=== PATIENT | male | born 1990 | race Two or more races ===

== ENCOUNTER 2022-12-12 08:45 | Emergency (ER) | payer MEDICAID, OTHER ==
[~2022-12-12] VITALS: Ht 172.7 cm; Wt 92.6 kg
[2022-12-12 09:35] LABS: Basophils # (auto) 0.1 10 ^3/uL (0-0.2); Basophils % (auto) 0.5 % (0.0-2.0); Eosinophils # (auto) 0 10 ^3/uL (0-0.8); Eosinophils % (auto) 0.1 % (0.0-7.0); Hematocrit 53.4 % (41.0-53.0); Hemoglobin 18.7 g/dL (13.5-17.5); Lymphocytes # (auto) 2.4 10 ^3/uL (0.4-5.4); Lymphocytes % (auto) 21.3 % (10.0-50.0); Mean Corpuscular Hemoglobin 30.8 pg (28.0-32.0); Mean Corpuscular Volume 88.2 fL (80.0-100.0); Monocytes # (auto) 1.3 10 ^3/uL (0-1.3); Monocytes % (auto) 11.3 % (0.0-12.0); Neutrophils # (auto) 7.6 10 ^3/uL (1.6-8.6); Neutrophils % (auto) 66.8 % (37.0-80.0); Nucleated Red Blood Cells % 0.1 %; Red Blood Cells 6.05 10^6/uL (4.5-5.90); White Blood Cell 11.4 10^3/uL (4.4-10.8)
[2022-12-12 09:45] LABS: INR 1.1 (0.9-1.15); Prothrombin Time 11.5 sec (9.3-11.8)
[2022-12-12 09:49] LABS: Alanine Aminotransferase 31 U/L (7-40); Albumin 5.1 g/dL (3.2-4.8); Alkaline Phosphatase 86 U/L (46-116); Anion Gap 15 (5-15); Aspartate Aminotransferase 23 U/L (13-40); Calcium 9.9 mg/dL (8.5-10.1); Carbon Dioxide 25 mmol/L (20-30); Chloride 92 mmol/L (98-107); Glucose 143 mg/dL (74-106); Potassium 3.4 mmol/L (3.5-5.1); Sodium 132 mmol/L (136-145); Total Protein 8.6 g/dL (5.7-8.2)
[2022-12-12 09:58] LABS: Blood Urea Nitrogen < 5 mg/dL (9-23)
[2022-12-12] MEDS ORDERED: SODIUM CHLORIDE 0.9% 1,000 ML IV ONE (15:45)
[2022-12-12] MEDS ORDERED: ACETAMINOPHEN 500 MG TAB PO ONE (16:00)
[2022-12-12 17:08] LABS: Urine Bacteria NONE SEEN /hpf (None Seen); Urine Blood Negative /uL (Negative); Urine Clarity Clear (Clear); Urine Color Yellow (Yellow); Urine Hyaline Cast FEW /lpf (0 - 2); Urine Mucus FEW (None Seen); Urine Protein, UAD 2+ (Negative); Urine Specific Gravity 1.024 (1.001-1.035); Urine WBC <1 /hpf (0 - 3); Urine pH 8.5 (5.0-8.0)
[2022-12-12 17:09] LABS: Amphetamine Screen, Urine Neg (NEGATIVE); Barbiturate Scree,Urine Neg (NEGATIVE); Benzodiazephine Screen, Urine Neg (NEGATIVE); Cannabinoid Screen, Urine Neg (NEGATIVE); Cocaine Screen, Urine Neg (NEGATIVE); Opiate Scree,Urine Neg (NEGATIVE); Phencyclidine Screen, Urine Neg (NEGATIVE)
[2022-12-12 17:11] LABS: Rapid Influenza A Negative (Negative); Rapid Influenza B Negative (Negative)
[2022-12-12 17:12] LABS: COVID19 ANTIGEN SOFIA FIA NEGATIVE (NEGATIVE)
[2022-12-12 18:20] VITALS: BP 159/90; PULSE 76; RESP 17; TEMP 98; O2SAT 99
== END 2022-12-12 18:22 | disposition home or self-care (01) ==
LOC: ER 08:45
DX: R53.83 Other fatigue (principal); R07.89 Other chest pain; Z20.822 Contact with and (suspected) exposure to COVID-19
CPT/HCPCS: 36415; 71045; 80053; 80307; 81001; 84484; 85025; 85610; 85730; 87426; 87804; 93005; 96360; 96361; 99285; J7030

== ENCOUNTER 2023-07-30 11:42 | Inpatient (IN) | payer MEDICAID ==
[~2023-07-30] VITALS: Ht 167.6 cm; Wt 77.2 kg
[2023-07-30] MEDS: ONDANSETRON HCL 4 MG/2 ML VIAL IV ONE (12:13)
[2023-07-30] MEDS: KETOROLAC TROMETH 30 MG/ML 1ML VIAL IV ONE (12:14)
[2023-07-30] MEDS: SODIUM CHLORIDE 0.9% 1,000 ML IV ONE (12:14)
[2023-07-30 12:54] LABS: Eosinophils # (auto) 0 10 ^3/uL (0-0.8); Hemoglobin 18.6 g/dL (13.5-17.5); Neutrophils # (auto) 20.5 10 ^3/uL (1.6-8.6)
[2023-07-30 12:56] LABS: Basophils # (auto) 0.1 10 ^3/uL (0-0.2); Basophils % (auto) 0.2 % (0.0-2.0); Hematocrit 54.5 % (41.0-53.0); Lymphocytes % (auto) 4.2 % (10.0-50.0); Mean Corpuscular Hemoglobin 30.9 pg (28.0-32.0); Mean Corpuscular Volume 90.7 fL (80.0-100.0); Monocytes # (auto) 1.4 10 ^3/uL (0-1.3); Neutrophils % (auto) 89.6 % (37.0-80.0); Nucleated Red Blood Cells % 0.1 %; Red Blood Cells 6.02 10^6/uL (4.5-5.90); White Blood Cell 22.8 10^3/uL (4.4-10.8)
[2023-07-30 13:08] LABS: INR 1.15 (0.9-1.15); Partial Thromboplastin Time 26.8 SEC (24.5-34.5); Prothrombin Time 12.1 sec (9.3-11.8)
[2023-07-30 13:16] LABS: Alanine Aminotransferase 46 U/L (7-40); Alkaline Phosphatase 78 U/L (46-116); Anion Gap 16 (5-15); Aspartate Aminotransferase 32 U/L (13-40); Calcium 10.2 mg/dL (8.5-10.1); Carbon Dioxide 25 mmol/L (20-30); Chloride 96 mmol/L (98-107); Glucose 128 mg/dL (74-106); Magnesium 1.7 mg/dL (1.6-2.6); Potassium 3.7 mmol/L (3.5-5.1); Sodium 137 mmol/L (136-145)
[2023-07-30 13:17] LABS: Albumin 5.1 g/dL (3.2-4.8); Bilirubin, Total 0.6 mg/dL (0.2-1.0); Total Protein 8.1 g/dL (5.7-8.2)
[2023-07-30 13:18] VITALS: PULSE 130; RESP 30; O2SAT 97
[2023-07-30] MEDS: IOHEXOL 300 MG/ML 100ML BOTTLE IJ ONE (13:20)
[2023-07-30 13:25] LABS: BUN/Creatinine Ratio 5.8 (10.0-20.0); Blood Urea Nitrogen < 5 mg/dL (9-23)
[2023-07-30] MEDS: PANTOPRAZOLE 40 MG TAB PO ONE (14:30)
[2023-07-30] MEDS: PANTOPRAZOLE 40mg/50ML NS AE 50 ML IV ONE (14:30)
[2023-07-30] MEDS: DexAMETHasone SOD PHOS 10MG/1ML VIAL INJ IV ONE (14:49)
[2023-07-30] MEDS: diphenhdrAMINE HCL 50 MG/1 ML VL IV ONE (15:07)
[2023-07-30] MEDS: PANTOPRAZOLE 40 MG/10 ML VIAL INJ IV ONE (15:26)
[2023-07-30 15:56] LABS: Rapid Strep A Screen-Throat Negative
[2023-07-30] MEDS ORDERED: ACETAMINOPHEN 325 MG TAB PO PRN (16:15)
[2023-07-30] MEDS ORDERED: NITROGLYCERIN 0.4 MG SL TAB SL PRN (16:15)
[2023-07-30] MEDS ORDERED: SODIUM CHLORIDE 0.9% 1,000 ML IV SCH (16:15)
[2023-07-30] MEDS: VANCOMYCIN 1GM/200ML 200 ML IV ONE (16:30)
[2023-07-30] MEDS ORDERED: ALBUTEROL SULF 2.5 MG/0.5ML(0.5%) NEB SOLN NEB PRN (16:30)
[2023-07-30] MEDS ORDERED: VANCOMYCIN PER PHARMACY 0 MG IV SCH (16:30)
[2023-07-30] MEDS: cefTRIAXone 1GM/50ML D5W 50 ML IV ONE (16:37)
[2023-07-30 16:46] LABS: Triglycerides 148 mg/dL (< 150)
[2023-07-30] MEDS: ONDANSETRON HCL 4 MG/2 ML VIAL IV PRN (16:46)
[2023-07-30 16:47] LABS: LDL Cholesterol 77 mg/dL (< 100)
[2023-07-30] MEDS: SODIUM CHLORIDE 0.9% 2,000 ML IV ONE (16:47)
[2023-07-30 16:48] LABS: Cholesterol 144 mg/dL (< 200); HDL Cholesterol 50 mg/dL (40-59)
[2023-07-30 18:18] VITALS: O2SAT 97
[2023-07-30] MEDS: diphenhdrAMINE HCL 50 MG/1 ML VL IV PRN (18:48)
[2023-07-30] MEDS: MORPHINE SULFATE INJ 2 MG/ml SYRG IV PRN (18:59)
[2023-07-30 19:40] VITALS: PULSE 130; RESP 30; O2SAT 97
[2023-07-30 19:48] LABS: Lactic Acid w/Reflex 4.9 mmol/L (0.4-2.0)
[2023-07-30] MEDS: SODIUM CHLORIDE 0.9% 1,000 ML IV SCH (19:49)
[2023-07-30 20:18] VITALS: BP 148/88; PULSE 130; RESP 26; TEMP 100.2; O2SAT 96
[2023-07-30] MEDS: DexAMETHasone SOD PHOS 4 MG/1ML SDV INJ IV SCH (22:06)
[2023-07-30 23:18] LABS: Urine Bacteria FEW /hpf (None Seen); Urine Blood 2+ /uL (Negative); Urine Clarity Clear (Clear); Urine Color Yellow (Yellow); Urine Mucus FEW (None Seen); Urine Protein, UAD 1+ (Negative); Urine Specific Gravity > 1.050 (1.001-1.035); Urine Urobilinogen Normal (Negative); Urine WBC 2 /hpf (0 - 3); Urine pH 6.5 (5.0-9.0)
[2023-07-30 23:23] LABS: Lactic Acid w/Reflex 4.3 mmol/L (0.4-2.0)
[2023-07-30 23:41] LABS: Amphetamine Screen, Urine Neg (NEGATIVE); Barbiturate Scree,Urine Neg (NEGATIVE); Benzodiazephine Screen, Urine Neg (NEGATIVE); Cocaine Screen, Urine Neg (NEGATIVE); Opiate Scree,Urine Pos (NEGATIVE); Phencyclidine Screen, Urine Neg (NEGATIVE)
[2023-07-30 23:42] LABS: Cannabinoid Screen, Urine Neg (NEGATIVE)
[2023-07-31] VITALS (11 sets, daily range): BP systolic 131–159; BP diastolic 72–88; PULSE 20–114; RESP 14–24; TEMP 98.2–99.2; O2SAT 92–96
[2023-07-31] MEDS: VANCOMYCIN 750mg/150ml 150 ML IV SCH
[2023-07-31 05:28] LABS: Hematocrit 45.5 % (41.0-53.0); Hemoglobin 15.3 g/dL (13.5-17.5); Mean Corpuscular Hemoglobin 30.9 pg (28.0-32.0); Mean Corpuscular Hgb Conc. 33.7 g/dL (32.0-36.0); Mean Corpuscular Volume 91.5 fL (80.0-100.0); Red Blood Cells 4.97 10^6/uL (4.5-5.90); Red Cell Distribution Width 13.1 % (11.8-14.3); White Blood Cell 26.6 10^3/uL (4.4-10.8)
[2023-07-31] MEDS: PIPERACILLIN-TAZOB 3.375GM 100 ML IV SCH (05:48)
[2023-07-31 05:50] LABS: Alanine Aminotransferase 32 U/L (7-40); Albumin 4.1 g/dL (3.2-4.8); Alkaline Phosphatase 53 U/L (46-116); Anion Gap 7 (5-15); Aspartate Aminotransferase 28 U/L (13-40); BUN/Creatinine Ratio 10.3 (10.0-20.0); Blood Urea Nitrogen 8 mg/dL (9-23); Calcium 8.8 mg/dL (8.7-10.4); Carbon Dioxide 29 mmol/L (20-30); Chloride 100 mmol/L (98-107); Glucose 142 mg/dL (74-106); Potassium 4.1 mmol/L (3.5-5.1); Sodium 136 mmol/L (136-145)
[2023-07-31 05:51] LABS: Bilirubin, Total 1.2 mg/dL (0.2-1.0); Total Protein 6.7 g/dL (5.7-8.2)
[2023-07-31 06:09] LABS: Basophils % (manual) 0 (0.0-2.0); Blast Cells 0; Eosinophils % (manual) 0 (0-7); Metamyelocytes % 0; Myelocytes % 0; Promyelocytes % 0; Reactive Lymphocytes 0
[2023-07-31 08:13] LABS: Band Neutrophils % (manual) 3; Large Platelets FEW; Lymphocytes % (manual) 3 (10.0-50.0); Monocytes % (manual) 6 (0-12); Platelet Estimate Adequate; RBC Morphology Normal
[2023-07-31] MEDS: cefTRIAXone 1GM/50ML D5W 50 ML IV SCH (09:29)
[2023-07-31] MEDS: ENOXAPARIN SOD 40 MG/0.4 ML SYRINGE SC SCH (10:23)
[2023-07-31] MEDS: PANTOPRAZOLE 40 MG/10 ML VIAL INJ IV SCH (10:23)
[2023-08-01] VITALS: BP 160/76; PULSE 117; RESP 21; TEMP 98.3; O2SAT 94
== END 2023-08-01 | disposition left against medical advice (07) | DRG 115 ==
LOC: ER 11:47 → TELE 16:17 → DOU IN ICU 07-31 17:38
PROVIDERS: ADMIT Nurse Practitioner Family; ATTEND Nurse Practitioner Family
DX: K12.2 Cellulitis and abscess of mouth (principal); J96.01 Acute respiratory failure with hypoxia; R65.11 Systemic inflammatory response syndrome (SIRS) of non-infectious origin with acute organ dysfunction; E66.01 Morbid (severe) obesity due to excess calories; J98.11 Atelectasis; K20.90 Esophagitis, unspecified without bleeding; J02.9 Acute pharyngitis, unspecified; Z68.27 Body mass index [BMI] 27.0-27.9, adult; Z53.29 Procedure and treatment not carried out because of patient's decision for other reasons
CPT/HCPCS: 36415; 70491; 71260; 80053; 80061; 80307; 81001; 82550; 83605; 83735; 84443; 85007; 85025; 85027; 85610; 85730; 87040; 87070; 87081; 87880; C9113; G0378; J1100; J1885; J2405; J2543